=== PATIENT | female | born 1985 | race Two or more races ===

== ENCOUNTER 2022-07-21 23:49 | Emergency (ER) | payer OTHER ==
[~2022-07-21] VITALS: Ht 165.1 cm; Wt 68.2 kg
[2022-07-22 00:09] VITALS: BP 110/71
== END 2022-07-22 03:59 | disposition left against medical advice (07) ==
LOC: ER 23:49
DX: R06.02 Shortness of breath (principal); Z53.21 Procedure and treatment not carried out due to patient leaving prior to being seen by health care provider